=== PATIENT | female | born 1990 | race Asian ===

== ENCOUNTER 2023-05-02 18:16 | Inpatient (IN) ==
[2023-05-02] MEDS ORDERED: Lidocaine 1% VIAL 10 MG/ML 30 ML VIAL INJ PRN (19:49)
[2023-05-02] MEDS ORDERED: Nalbuphine 10 MG/ML 1 ML VIAL IV PRN (19:49)
[2023-05-02] MEDS: Lactated Ringers 1000 ml BAG 1,000 ML IV ONE (20:21)
[2023-05-02 20:55] LABS: ABS Eosinophils 0.4 10^3/uL (0.0-0.5); ABS Monocytes 0.9 10^3/uL (0.0-0.9); ABS Neutrophils 6.9 10^3/uL (1.5-7.6); ABS Nucleated RBC 0.01 10^3/ul; Eosinophil % 4.2 %; Hematocrit 39.3 % (35-45); Hemoglobin 13.2 g/dL (11.5-14.3); Lymphocyte % 19.1 %; Mean Corpuscular Hemoglobin 27.6 pg (27-33); Mean Corpuscular Hgb Conc 33.6 g/dL (31-36); Mean Corpuscular Volume 82.3 fL (80-97); Mean Platelet Volume 9.1 fL (7.5-11.2); Nucleated Red Blood Cells % 0.1 %/100WBC (0.0-0.8); Platelet Count 237 10^3/uL (150-450); Red Blood Count 4.77 10^6/uL (3.63-4.92); Red Cell Distribution Width 16.7 % (12-17); White Blood Count 10.3 10^3/uL (3.8-11.8)
[2023-05-02] MEDS: Lactated Ringers 1000 ml BAG 1,000 ML IV SCH (20:59)
[2023-05-02 21:44] LABS: Urine Benzodiazepine Screen None Detected (None Detect); Urine Cannabinoids Screen None Detected (None Detect); Urine Opiates Screen None Detected (None Detect)
[2023-05-02] MEDS: Dinoprostone 10 MG VAG.SUPP VAGINAL ONE (23:18)
[2023-05-02] MEDS: Penicillin G Potassium IV 3,000,000 UNITS in NS 0.9% 100 ml BAG 100 ML IVPB SCH (23:30)
[2023-05-02] MEDS: Penicillin G Potassium IV 5,000,000 UNITS in NS 0.9% 100 ml BAG 100 ML IVPB ONE (23:31)
[2023-05-03] MEDS: Prochlorperazine 5 mg/ml 2 ml VIAL (10 mg) IV PRN (00:56)
[2023-05-03] MEDS: Penicillin G Potassium IV 3,000,000 UNITS in NS 0.9% 100 ml BAG 100 ML IVPB SCH (03:35)
[2023-05-03] MEDS: miSOPROStol 100 mcg TAB PO ONE (03:58)
[2023-05-03] MEDS: Oxytocin in LR 20,000 MILLI.UNIT/1,000 ML BAG IV SCH (13:32)
[2023-05-03] MEDS: OBEPIDURAL (200 ML) 200 ML EPIDURAL SCH (18:00)
[2023-05-03] MEDS: Lidocaine 1.5% EPI 1:200,000 30 ML SDV ONE (18:36)
[2023-05-03] MEDS ORDERED: Sodium Citrate/Citric Acid LIQ 15 ML UDC PO PRN (18:45)
[2023-05-03] MEDS ORDERED: Phenylephrine 40 mcg/mL 10mL (400mcg) SYRINGE IV PUSH PRN ×2 (18:45)
[2023-05-03] MEDS ORDERED: Lactated Ringers 1000 ml BAG 500 ML IV PRN ×2 (18:45)
[2023-05-03] MEDS: Lactated Ringers 1000 ml BAG 1,000 ML IV SCH (19:06)
[2023-05-03 19:09] LABS: Urine Appearance Clear; Urine Bilirubin Negative (Negative); Urine Blood 3+ (Negative); Urine Color Light-Yellow; Urine Glucose Negative (Negative); Urine Ketones 1+ (Negative); Urine Nitrite Negative (Negative); Urine Protein Negative (Negative); Urine Specific Gravity 1.018 (1.002-1.030); Urine Urobilinogen Negative (Negative); Urine pH 7.5 (5.0-8.0)
[2023-05-03 19:13] LABS: Urine Bacteria Absent /HPF (Absent); Urine Red Blood Cell 3+(>10/hpf) /HPF (0-Trace); Urine Squamous Epithelial Cell Present /HPF (Absent); Urine White Blood Cell Trace(0-5/hpf) /HPF (0-Trace)
[2023-05-03] MEDS ORDERED: Bupivacaine 0.25% SDV PF 10 ML VIAL INJ ONE (21:36)
[2023-05-03] MEDS ORDERED: fentaNYL 100 mcg/2 ml 50 MCG/ML VIAL ONE ×2 (22:07→23:54)
[2023-05-03] MEDS ORDERED: Bupivacaine 0.5% SDV PF 30ML VIAL ONE (23:54)
[2023-05-04] MEDS: OBEPIDURAL (200 ML) 200 ML EPIDURAL ONE (04:18)
[2023-05-04] MEDS ORDERED: Glycerin ADULT 2.4 gm SUPP PR PRN (05:01)
[2023-05-04] MEDS: Dibucaine 1% OINT 28.35 GM TUBE PR PRN (05:46)
[2023-05-04] MEDS: Witch Hazel PAD JAR TOPICAL PRN (05:46)
[2023-05-04] MEDS ORDERED: Lactated Ringers 1000 ml BAG 1,000 ML IV SCH (06:00)
[2023-05-04] MEDS: Buffered Lidocaine 1% SYRIN 1 ml INTRADERM ONE (06:17)
[2023-05-04] MEDS: Lactated Ringers 1000 ml BAG 1,000 ML IV ONE (06:35)
[2023-05-04] MEDS: Oxytocin in LR 20,000 MILLI.UNIT/1,000 ML BAG IV SCH (06:36)
[2023-05-04] MEDS ORDERED: Influenza vaccine *QUAD* *2023-24* 0.5 ML SYRINGE IM ONE (22:18)
[2023-05-05] MEDS: Measles, Mumps,Rubella VACC 0.5 ML/VIAL SUBCUT ONE (01:24)
[2023-05-05] MEDS: Varicella Virus Vaccine Live 0.5 ML VIAL SUBCUT ONE ×2 (01:25→12:35)
[2023-05-05 06:43] LABS: ABS Basophils 0.1 10^3/uL (0.0-0.1); ABS Eosinophils 0.3 10^3/uL (0.0-0.5); ABS Lymphocytes 2.3 10^3/uL (1.0-4.8); ABS Monocytes 1.2 10^3/uL (0.0-0.9); ABS Neutrophils 13.6 10^3/uL (1.5-7.6); Eosinophil % 1.9 %; Hematocrit 27.7 % (35-45); Hemoglobin 9.2 g/dL (11.5-14.3); Lymphocyte % 13.4 %; Mean Corpuscular Hemoglobin 27.4 pg (27-33); Mean Corpuscular Hgb Conc 33.1 g/dL (31-36); Mean Corpuscular Volume 82.8 fL (80-97); Mean Platelet Volume 8.9 fL (7.5-11.2); Platelet Count 177 10^3/uL (150-450); Red Blood Count 3.35 10^6/uL (3.63-4.92); Red Cell Distribution Width 16.7 % (12-17); White Blood Count 17.5 10^3/uL (3.8-11.8)
[2023-05-05] MEDS: Influenza vaccine *QUAD* *2023-24* 0.5 ML SYRINGE IM ONE (15:47)
[2023-05-05 19:50] VITALS: BP 94/56
[2023-05-06] MEDS ORDERED: Lidocaine 4% CREAM (LMX) 5 GM TUBE TOPICAL ONE (10:57)
== END 2023-05-06 15:02 | disposition home or self-care (01) | DRG 768 ==
LOC: MCHOBOUT 18:16 → MCHOB 19:29
PROVIDERS: ADMIT Advanced Practice Midwife; ATTEND Midwife